=== PATIENT | female | born 1995 | race African-American/Black ===

== ENCOUNTER 2017-08-25 21:11 | Emergency (ER) | payer OTHER ==
[~2017-08-25] VITALS: Ht 172.7 cm; Wt 68.2 kg
[2017-08-25 22:14] VITALS: BP 145/92
[2017-08-25] MEDS ORDERED: IBUPROFEN 800 MG TABLET PO ONE (22:15)
== END 2017-08-25 22:56 | disposition home or self-care (01) ==
LOC: EMS 21:12
DX: S62.304A Unspecified fracture of fourth metacarpal bone, right hand, initial encounter for closed fracture (principal); F17.210 Nicotine dependence, cigarettes, uncomplicated; Y04.0XXA Assault by unarmed brawl or fight, initial encounter; Y93.89 Activity, other specified; Y92.89 Other specified places as the place of occurrence of the external cause; Y99.8 Other external cause status
CPT/HCPCS: 99284; 99406

== ENCOUNTER 2018-06-26 13:41 | Emergency (ER) | payer OTHER ==
[~2018-06-26] VITALS: Ht 172.7 cm; Wt 79.5 kg
[2018-06-26] MEDS ORDERED: [UNRECOGNIZED DRUG - CODE] PO (13:48)
[2018-06-26 14:38] VITALS: BP 122/83
== END 2018-06-26 14:55 | disposition home or self-care (01) ==
LOC: EMS 13:42
DX: K04.7 Periapical abscess without sinus (principal); F17.210 Nicotine dependence, cigarettes, uncomplicated
CPT/HCPCS: 99406

== ENCOUNTER 2019-04-06 14:26 | Emergency (ER) | payer OTHER ==
[~2019-04-06] VITALS: Ht 172.7 cm; Wt 72.7 kg
[~2019-04-06 14:26] MED LIST: [UNRECOGNIZED DRUG - CODE] PO
[2019-04-06 14:33] VITALS: BP 105/60
[2019-04-06] MEDS ORDERED: AMOX250C4 PO (14:40)
== END 2019-04-06 18:00 | disposition home or self-care (01) ==
LOC: EMS 14:29
DX: J02.9 Acute pharyngitis, unspecified (principal); F17.210 Nicotine dependence, cigarettes, uncomplicated
CPT/HCPCS: 87430